=== PATIENT | female | born 1975 | race Caucasian/White ===

== ENCOUNTER 2017-08-31 16:33 | Emergency (ER) | payer BC ==
[~2017-08-31] VITALS: Ht 170.2 cm; Wt 77.3 kg
[2017-08-31 16:40] VITALS: TEMP 98.5
[2017-08-31] MEDS ORDERED: LEVOXYL0.075 MG PO (16:44)
[2017-08-31] MEDS ORDERED: NORCO 325 MG-51 TAB PO (18:01)
[2017-08-31] MEDS ORDERED: PERCOCET 325 MG1 TA2 PO (18:49)
[2017-08-31 19:56] VITALS: BP 126/88; PULSE 75
[2017-08-31] MEDS ORDERED: OXY IR5 MG PO (19:56)
== END 2017-08-31 19:25 | disposition home or self-care (01) ==
LOC: COL.ER 16:33
DX: S09.90XA Unspecified injury of head, initial encounter (principal); S82.61XA Displaced fracture of lateral malleolus of right fibula, initial encounter for closed fracture; S20.212A Contusion of left front wall of thorax, initial encounter; E03.9 Hypothyroidism, unspecified; V47.5XXA Car driver injured in collision with fixed or stationary object in traffic accident, initial encounter; Y93.I9 Activity, other involving external motion
CPT/HCPCS: J2270; J2405; J2704; J7030